=== PATIENT | male | born 1995 | race Caucasian/White ===

== ENCOUNTER 2022-02-12 08:59 | Emergency (ER) | payer BC, SELFPAY ==
[2022-02-12 08:59] VITALS: BP 159/83; PULSE 110; RESP 16; TEMP 36.6; O2SAT 98; BMI 31.1
[2022-02-12 09:25] LABS: UTC Strep Screen (Rapid) Positive (Negative)
--- NOTE | 2022-02-12 09:28 | HMH.EDUTC ---
[facility] [place] Disposition Clinical Impression: Strep throat, Viral disease exposure Disposition: Home, Self-Care Condition on Discharge: Good Instructions: Strep Throat, DI for Strep Throat Additional Instructions: Drink plenty of fluids. Take tylenol or ibuprofen for pain or fever. Take the medications as directed. Follow up with your regular doctor. GO TO THE ER FOR ANY WORSENING SYMPTOMS Throw your tooth brush away and get a new one. Quarantine until you know the results of your covid-19 test. Notify your school or workplace of your results and follow their instructions regarding return to work/school. Prescriptions: Brompheniramine/Pseudoephed/Dm [Bromfed Dm Cough Syrup] 5 ml PO Q6HP PRN #240 ml PRN Reason: Cough methylPREDNISolone [Medrol] 4 mg PO DIRECTED 6 Days #21 packet Azithromycin [Z-Nael 250mg Tab*] 250 mg PO UD DOSE PK #6 tab Referrals: Bryant Goldman [Primary Care Provider] - Forms: Work/School Release Time of Disposition: 09:37 Medical Decision Making - Medical Records Medical records reviewed: No: I reviewed the patient's medical records. - Nav[place]et Inquiry Pt receiving controlled substance: No Vital Signs: 02/12/22 08:59 Temperature 97.8 F Temperature Source Oral Pulse Rate [Right] 110 H Respiratory Rate 16 Blood Pressure [Right Arm] 159/83 H Blood Pressure Mean [Right Arm] 108 Blood Pressure Source [Right Arm] Automatic Cuff Blood Pressure Position [Right Arm] Sitting 02 Sat by Pulse Oximetry 98 Oxygen Delivery Method Room Air - Lab Data Lab results reviewed: Yes: I reviewed the patient's lab results. Lab Results 02/12/22 09:24: Strep Scn Rapid Clinic Positive A Orders (Tests/Meds): ORDERS Category Date Time Status Full Resp Panel w/COVID ([facility]) Routine Lab 02/12/22 09:27 Ordered Strep Scrn Group A (Rapid) Stat Lab 02/12/22 09:17 Stop Req [facility] [place] HPI - General Stated complaint: sore throat, congestion, fever, cough Time Seen by Provider: 02/12/22 09:00 Mode of Arrival: Ambulatory Source of Information: Patient Limitations: No Limitations Description of Symptoms (Recalled from Triage Doc. by RN): pt c/o cough, sore throat, fever, hurts to swallow, and low energy HEENT Symptoms (Recalled from RN notes): Yes (sore throat, cough) Resp Symptoms (Recalled from RN notes): No Skin Symptoms (Recalled from RN notes): No MS Symptoms (Recalled from RN notes): No Functional Status (Recalled from RN notes): na - History of Present Illness Provider Complaint: He c/o sore throat for the past 2 days. His tested positive for strep throat yesterday. His son tested positive for adenovirus last week. - Related Data Previous Rx's Medication Instructions Recorded Azithromycin [Z-Nael 250mg Tab*] 250 mg PO UD DOSE PK #6 tab 02/12/22 Brompheniramine/Pseudoephed/Dm 5 ml PO Q6HP PRN #240 ml 02/12/22 [Bromfed Dm Cough Syrup] methylPREDNISolone [Medrol] 4 mg PO DIRECTED 6 Days #21 02/12/22 packet - Worker's Comp Is this a Worker's Comp case?: No H History - Hepatitis A Screen Attestation statement:: This patient has been screened for Hepatitis A risk factors. I have reviewed the patient's past medical history: Yes ROS Obtained: Yes All systems reviewed & no additional complaints - Constitutional Constitutional: Reports as per HPI - Eyes Eyes: Denies eye discharge - ENT Ears, Nose, Mouth, and Throat: Reports as per HPI - Cardiovascular Cardiovascular: Denies chest pain - Respiratory Respiratory: Reports chest congestion, Reports cough Physical Exam - General General appearance: alert, in no apparent distress - Head Head exam: atraumatic, normocephalic, normal inspection - Eye Eye exam: Present: normal appearance, PERRL, EOMI - ENT ENT exam: Present: mucous membranes moist, normal external ear exam - Expanded ENT Exam TM/Canal exam: Bilateral TM: erythema, bulging Nose exam: Absent: sinus tenderness Nasal spe
[2022-02-12 09:56] VITALS: BP 142/74; PULSE 100; RESP 16; TEMP 37.2; O2SAT 98
== END 2022-02-12 09:57 | disposition home or self-care (01) ==
PROVIDERS: Emergency Provider Nurse Practitioner Family; PCP Family Medicine
DX: J02.0 Streptococcal pharyngitis (principal)
CPT/HCPCS: 87880; 99212; G0463